=== PATIENT | male | born 1995 | race Caucasian/White ===

== ENCOUNTER 2021-01-01 22:30 | Emergency (ER) | payer OTHER ==
[2021-01-01 22:34] VITALS: BP 117/66; PULSE 73; TEMP 98.5; BMI 22.9
[2021-01-01] MEDS ORDERED: IBUPROFEN 600 MG TABLET (FP) PO ONE ×2 (23:02→23:12)
[2021-01-01] MEDS ORDERED: AMOX TR/POT CLAV 875MG/125MG TABLETS (FP) PO ONE (23:07)
[2021-01-01] MEDS ORDERED: AMOX TR/POT CLAV 875MG/125MG TABLETS (FP) ONE (23:11)
== END 2021-01-01 23:59 | disposition home or self-care (01) ==
LOC: JER 22:30
PROC: 0HQDXZZ Repair Right Lower Arm Skin, External Approach (ICD-10-PCS; principal; 2021-01-01)
DX: S51.851A Open bite of right forearm, initial encounter (principal)
CPT/HCPCS: 99284-25